=== PATIENT | female | born 1980 | race African-American/Black ===

== ENCOUNTER 2017-07-24 21:19 | Emergency (ER) | payer OTHER, SELFPAY ==
[2017-07-24 21:49] LABS: Bilirubin Negative (Negative); Blood, Urine Negative (Negative); Clarity Slightly Cloudy (Clear); Glucose, Urine (Dipstick) Negative (Negative); Leukocyte Small (Negative); Nitrite Negative (Negative); Protein, Urine (Dipstick) Negative (Neg-Trace); Urobilinogen 0.2 mg/dL (0.2-1.0); pH, Urine 5.5 (5.0-9.0)
[2017-07-24 21:52] LABS: Bacteria/HPF 2+ HPF (None Seen); Squamous Epithelial 0-3 HPF (0-3)
[2017-07-24 21:53] LABS: Trichomonas/HPF 1+ HPF (None Seen)
[2017-07-24] MEDS ORDERED: metroNIDAZOLE 250 MG TAB ONE (22:18)
[2017-07-24] MEDS ORDERED: Sulfameth/Trimethoprim DS 800-160mg TAB ONE (22:24)
[2017-07-28 18:20] LABS: Chlamydia by PCR DETECTED (NotDetected); GC by PCR DETECTED (NotDetected)
== END 2017-07-24 22:26 | disposition home or self-care (01) ==
LOC: BURERS 21:19
DX: N30.00 Acute cystitis without hematuria (principal); A59.01 Trichomonal vulvovaginitis; F32.9 Major depressive disorder, single episode, unspecified; F17.210 Nicotine dependence, cigarettes, uncomplicated
CPT/HCPCS: 81003; 81015; 87086; 87491; 87591; 99283

== ENCOUNTER 2018-04-08 00:11 | Emergency (ER) | payer SELFPAY ==
[2018-04-08] MEDS ORDERED: HYDROcodone/Acetaminophen 5/325 mg Tablet ONE (01:37)
--- NOTE | 2018-04-08 11:32 | CT ---
29[address] CT FACIAL BONES: Date: 04-08-[address] of the face was performed following trauma. Axial slices were acquired then coronal and sag ittal reconstructions were done. IMPRESSION: No gross fractures were identified. The zygomatic arches and orbital rims appears intact. There might be a little irregularity of the left nasal bone anteriorly, but this is an equivocal finding at best . The septum is midline. The paranasal sinuses are clear except for some polypoid mucosal thickening in the left maxillary sinus. The retroorbital areas appear normal. IMPRESSION: No gross fracture seen. Equivocal irregularity of the left nasal bone which may or may not be signifi cant. Report in agreement with the preliminary reading by PAWAN. POS: HOME
== END 2018-04-08 01:39 | disposition home or self-care (01) ==
LOC: BURERS 00:11
DX: S00.33XA Contusion of nose, initial encounter (principal); I10 Essential (primary) hypertension; F32.9 Major depressive disorder, single episode, unspecified; F17.210 Nicotine dependence, cigarettes, uncomplicated; Y04.0XXA Assault by unarmed brawl or fight, initial encounter
CPT/HCPCS: 70486

== ENCOUNTER 2018-09-05 13:40 | Emergency (ER) | payer SELFPAY ==
[2018-09-05] MEDS ORDERED: Ketorolac Tromethamine 60 MG/2 ML VIAL ONE (14:01)
== END 2018-09-05 14:16 | disposition home or self-care (01) ==
LOC: BURERS 13:40
DX: M72.2 Plantar fascial fibromatosis (principal); I10 Essential (primary) hypertension; F17.210 Nicotine dependence, cigarettes, uncomplicated
CPT/HCPCS: 96372; J1885

== ENCOUNTER 2018-12-21 19:08 | Emergency (ER) | payer BC ==
[2018-12-21] MEDS ORDERED: Adacel (T-DAP) 0.5 ML SYRINGE ONE (19:29)
[2018-12-21] MEDS ORDERED: Doxycycline Hyclate 100 MG TAB ONE (19:51)
--- NOTE | 2018-12-21 21:08 | RAD ---
LEFT FOOT THREE VIEWS 12/21/18 No fracture was seen. No opaque foreign body was seen at the site of interest on the plantar aspect o f the forefoot. A moderate sized calcaneal spur is present. There is no periosteal reaction. No bony destructive lesion was seen. IMPRESSION: Chronic changes but no acute finding. POS: HOME
== END 2018-12-21 19:54 | disposition home or self-care (01) ==
LOC: BURERS 19:08
DX: L02.416 Cutaneous abscess of left lower limb (principal); I10 Essential (primary) hypertension; F17.210 Nicotine dependence, cigarettes, uncomplicated
CPT/HCPCS: 36416; 90471; 90715

== ENCOUNTER 2019-06-15 06:10 | Emergency (ER) | payer BC ==
[2019-06-15] MEDS ORDERED: Ibuprofen 800 MG TAB ONE (07:30)
--- NOTE | 2019-06-15 13:36 | RAD ---
LEFT ANKLE THREE VIEWS: 06/15/2019 FINDINGS: Soft tissue swelling is present, but no fracture is seen. Some flecks of bone near the tip of the me dial malleolus appeared to be due to an old injury. The ankle mortise is not widened, and the articu lar surfaces are smooth. A small calcaneal spur is present. IMPRESSION: Soft tissue swelling but no acute bony changes. POS: HOME
--- NOTE | 2019-06-15 13:37 | RAD ---
LEFT KNEE FOUR VIEWS: 06/15/2019 FINDINGS: No fracture or joint effusion is seen. Some mild degenerative changes are seen, consisting of some m inimal osteophytes and slight medial joint space narrowing. IMPRESSION: Mild degenerative change. POS: HOME
== END 2019-06-15 08:17 | disposition home or self-care (01) ==
LOC: BURERS 06:10
DX: S83.412A Sprain of medial collateral ligament of left knee, initial encounter (principal); S93.492A Sprain of other ligament of left ankle, initial encounter; I10 Essential (primary) hypertension; F17.210 Nicotine dependence, cigarettes, uncomplicated; W10.9XXA Fall (on) (from) unspecified stairs and steps, initial encounter

== ENCOUNTER 2019-07-28 09:52 | Emergency (ER) | payer BC ==
[2019-07-28] MEDS ORDERED: Ketorolac Tromethamine 60 MG/2 ML VIAL ONE (10:42)
[2019-07-28] MEDS ORDERED: Cyclobenzaprine 10 MG TAB ONE (10:42)
--- NOTE | 2019-07-28 13:58 | RAD ---
LEFT KNEE 4 VIEWS: DATE: 07/28/2019. FINDINGS: Comparison is made with an 06/15/2019 study. Degenerative changes are again seen, but no acute fractur e was noted. No sizable joint effusion was appreciated. The joint space is normal in width. IMPRESSION: No acute finding. POS: HOME
== END 2019-07-28 11:09 | disposition home or self-care (01) ==
LOC: BURERS 09:52
DX: S83.92XA Sprain of unspecified site of left knee, initial encounter (principal); M54.5 Low back pain; I10 Essential (primary) hypertension; F17.210 Nicotine dependence, cigarettes, uncomplicated; W01.0XXA Fall on same level from slipping, tripping and stumbling without subsequent striking against object, initial encounter
CPT/HCPCS: 96372; J1885